=== PATIENT | female | born 1995 | race Caucasian/White ===

== ENCOUNTER 2019-10-29 11:39 | Inpatient (IN) | payer BC ==
[2019-11-02] MEDS ORDERED: LIDOCAINE 0.5% (PF) 5 MG/ML (50 ML SDV) SQ PRN (06:16)
[2019-11-02] MEDS ORDERED: TERBUTALINE 1 MG/ML VIAL SQ PRN (06:16)
[2019-11-02] MEDS ORDERED: CARBOPROST TROMETHAMINE 250 MCG/ML 1 ML AMP IM PRN (06:16)
[2019-11-02] MEDS ORDERED: METHYLERGONOVINE 0.2 MG/ML 1 ML AMP IM PRN (06:16)
[2019-11-02] MEDS ORDERED: OXYTOCIN 10 UNIT/ML 1 ML VIAL IM PRN (06:16)
[2019-11-02] MEDS ORDERED: PENICILLIN G POTASSIUM 5,000,000 UNIT in DEXTROSE 5% IN WATER 100 ML IVPB ONE ×2 (06:30)
[2019-11-02] MEDS: LACTATED RINGERS 1,000 ML IV SCH ×2 (06:32→12:12)
[2019-11-02] MEDS: OXYTOCIN 30 UNITS/500 ML NS 30 UNIT in SALINE 1 500ML.BAG IV SCH (06:49)
[2019-11-02 06:56] LABS: Basophils % (A) 0 %; Eosinophils # (A) 0.2 k/uL (0-0.7); Eosinophils % (A) 2 %; HCT 42.2 % (34.0-46.0); HGB 14.2 gm/dL (11.4-16.0); Lymphocytes # (A) 1.7 k/uL (1.0-4.8); Lymphocytes % (A) 19 %; MCH 30.9 pg (25.0-35.0); MCHC 33.6 g/dL (31.0-37.0); MCV 92.2 fL (80.0-100.0); Mean Platelet Volume 8.4; Monocytes # (A) 0.5 k/uL (0-1.0); Monocytes % (A) 5 %; Neutrophils # (A) 6.4 k/uL (1.3-7.7); Neutrophils % (A) 71 %; Platelet Count 275 k/uL (150-450); RBC 4.58 m/uL (3.80-5.40); RDW 12.8 % (11.5-15.5); WBC 9.1 k/uL (3.8-10.6)
--- NOTE | 2019-11-02 07:36 | P.HPOB ---
History of Present Illness H&P Date: 11/02/19 This is a 24-year-old white female 2 para 1001 EDC 10/29/2019 at 40-4/7 weeks' gestation. Patient presents today for induction for postdates with favorable multiparous cervix. Fetus is been active throughout the . She denies vaginal bleeding or fluid leakage. 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 History of asthma, vitamin D deficiency on oral replacement. Past surgical history is significant for tonsillectomy in the past. Current medications Ventolin inhaler 1 puff every 6 hours as needed, vitamin daily. ALLERGIES none known. Family history significant for heart disease, hypertension, breast cancer. Obstetric history significant for 41 week vaginal delivery 2013, unremarkable. Social history patient is a former tobacco smoker, father of the baby is present and involved. She denies alcohol or drug use with her . Obstetric history is significant for blood type B+, rubella status immune. VDRL testing, urine culture, hepatitis B surface antigen, HIV testing, gonorrhea and chlamydia cultures all negative. One-hour Glucola 123. Group B strep cultures positive. On exam this is a pleasant female who is 5 foot 1 inch, 187 pounds, blood pressure on admission 134/86. The general physical exam is within normal limits. Chest is clear in all whiting. Extremities reveal no edema. Cervix is 3 cm dilated, 60% effaced, -2 station, vertex, anterior, soft. Artificial amniorrhexis reveals meconium-stained fluid. heart rate is consistent with reactive NST, baseline 140s. Good overall variability. Impression: 40-4/7 weeks intrauterine , here for induction of labor with reasonably favorable cervix. Positive group B strep cultures. Meconium- stained fluid. Plan: Penicillin prophylaxis has been instituted. Oxytocin per hospital protocol. Close maternal and surveillance. Anticipate normal spontaneous vaginal delivery. Analgesic options have been reviewed with the patient. Review of Systems Constitutional: Reports as per HPI Past Medical History Past Medical History: Asthma History of Any Multi-Drug Resistant Organisms: None Reported Past Surgical History: Tonsillectomy Past Anesthesia/Blood Transfusion Reactions: No Reported Reaction Smoking Status: Never smoker Past Drug Use History: None Reported - Past Family History Mother Family Medical History: No Reported History Medications and Allergies Home Medications Medication Instructions Recorded Confirmed Type 78/Iron/Folate 1/Dha 1 tab PO ONCE 11/02/19 11/02/19 History [Prenate Dha Softgel] Allergies Allergy/AdvReac Type Severity Reaction Status Date / Time No Known Allergies Allergy Verified 11/02/19 06:16 Exam Vital Signs Temp Pulse Resp BP 11/02/19 07:05 97.1 F L 103 H 16 134/86 Intake and Output 11/01/19 11/02/19 11/02/19 22:59 06:59 14:59 Other: Weight 84.822 kg 84.822 kg See dictation under HPI please Results Result Diagrams: 11/02/19 06:40 Assessment and Plan Assessment: 40-4/7 weeks intrauterine , thin meconium-stained fluid. All signs otherwise reassuring, positive group B strep. Plan: Continue close maternal and surveillance. Penicillin G per hospital protocol. Oxytocin augmentation. Anticipate normal spontaneous vaginal delivery. Time with Patient: Less than 30
[2019-11-02] MEDS: PENICILLIN G POTASSIUM 2,500,000 UNIT in DEXTROSE 5% IN WATER 100 ML IVPB SCH ×4 (10:32→15:08)
[2019-11-02] MEDS ORDERED: ROPIVACAINE 100 MG, fentaNYL (PF) 200 MCG in SODIUM CHLORIDE 0.9% 76 ML EPIDURAL ONE (12:39)
[2019-11-02] MEDS ORDERED: HYDROCORTISONE 2.5% RECTAL CREAM 30 GM TUBE RECTAL PRN (16:33)
[2019-11-02] MEDS ORDERED: BENZOCAINE/MENTHOL SPRAY 1 GM/SPRAY AEROSOL TOPICAL PRN (16:33)
[2019-11-02] MEDS ORDERED: WITCH HAZEL 1 EACH MED..PAD TOPICAL PRN (16:33)
[2019-11-02] MEDS ORDERED: SIMETHICONE 80 MG CHEWABLE PO PRN (16:33)
[2019-11-02] MEDS ORDERED: ACETAMINOPHEN TAB 325 MG TAB PO PRN (16:33)
[2019-11-02] MEDS ORDERED: LANOLIN CREAM 5 GM TUBE TOPICAL PRN (16:33)
[2019-11-02] MEDS ORDERED: diphenhydrAMINE 50 MG/ML 1 ML VIAL IVP PRN ×2 (16:33)
[2019-11-02] MEDS ORDERED: diphenhydrAMINE 50 MG CAP PO PRN (16:33)
[2019-11-02] MEDS ORDERED: ZOLPIDEM 5 MG TAB PO PRN (16:33)
[2019-11-02] MEDS ORDERED: diphenhydrAMINE ELIXIR 25 MG/10 ML CUP PO PRN (16:33)
[2019-11-02] MEDS ORDERED: diphenhydrAMINE 25 MG CAP PO PRN (16:33)
--- NOTE | 2019-11-02 16:33 | P.PROBDLV ---
Vaginal Delivery Note - . Vaginal Delivery Note: This is a 24-year-old white female 2 para 1001 EDC 10/29/2019 at 40-4/7 weeks' gestation. Patient he presented for induction with favorable multiparous cervix, postdates . Blood type B positive. Rubella status immune. Group B strep cultures positive. Please see my dictated history and physical for details. Penicillin G prophylaxis was given, 3 doses were received. Oxytocin was started and titrated per hospital protocol. Artificial amniorrhexis revealed light meconium-stained fluid. Epidural was placed per her request. She became completely dilated at 07/25/2001 hours and began the second stage of labor at that time. With excellent maternal expulsive efforts the infant's head crowned occiput anterior. Perineal body was prepped and draped in usual sterile fashion. 's head delivered occiput anterior and restituted accordingly. The left or anterior shoulder was delivered easily from underneath the pubic symphysis. The oropharynx, nasopharynx, and external nares were all bulb suctioned on the perineal body. Patient was officially delivered of a liveborn male infant at 1614 hrs. Umbilical cord was doubly clamped and ligated, he was handed to waiting nurses for evaluation where scores of 8 and 9 at one and 5 minutes respectively were given. The placenta delivered spontaneously with active management, was inspected and noted to be intact with trivascular cord at 1617 hrs. Uterus is then massaged. Careful inspection of the cervix, vagina, perineum, periurethral, and perirectal areas revealed no lacerations and no defects. Bleeding was slightly brisk immediately upon delivery of placenta, therefore Methergine was given IM 1 with immediate results. Total estimated blood loss 300 mL's. All sponge needle and enhancement counts are correct at the end of the procedure. Patient is requesting circumcision for her son.
[2019-11-02] MEDS ORDERED: OXYTOCIN 20 UNITS/1000 ML NS 1,000 ML IV SCH (16:45)
[2019-11-02] MEDS: SENNOSIDES-DOCUSATE SODIUM 1 EACH TAB PO SCH (22:50)
--- NOTE | 2019-11-03 07:49 | P.DS ---
Providers Date of admission: 11/02/19 06:03 Expected date of discharge: 11/03/19 Attending physician: Saida Yeung Primary care physician: Stated None Hospital Course: This is a 24 rolled white female 2 per 1001 [facility] 10/29/2019 who presented at 40-4/7 weeks for induction for postdates . Blood type B positive, rubella status immune, group B strep cultures positive. otherwise unremarkable, please see admitting H&P for details. Artificial amniorrhexis revealed thin meconium-stained fluid. Oxytocin was started and titrated per hospital protocol. Penicillin G was given per protocol, 3 doses total. Patient went on to deliver a liveborn male with scores of 8 and 9 at one and 5 minutes respectively. Infant weighed 9 lbs. 1 oz. or 4100 g. Estimated blood loss 300 mL's. Placenta intact, meconium stained with trivascular cord. Please see my dictated delivery note for details. This morning the patient looks well. She is voiding, ambulating and passing flatus without difficulty. Vital signs are stable and she is afebrile. Fundus is firm and in the midline, symmetric and 18 week size. Extremities are negative for edema. Patient is breast-feeding without issue. Perineum is clean and dry, intact. Fundus is firm, midline, symmetric, 18 week size. Patient is judged to be in very good condition for discharge home, and circumcision has been performed. Patient will follow-up with me in the office in 6 weeks. She is reminded no intercourse, tampons or douching. She will use [id number] Advil or Aleve, or Motrin as needed for pain. I've asked her to call with any fevers shakes or chills, foul smelling or copious lochia, with the passage of large blood clots, with any pain not alleviated by [id number] products, or indeed with any concerns. Patient Condition at Discharge: Good Plan - Discharge Summary Discharge Rx Participant: No New Discharge Prescriptions: No Action 78/Iron/Folate 1/Dha [Prenate Dha Softgel] 1 tab PO ONCE Discharge Medication List 78/Iron/Folate 1/Dha [Prenate Dha Softgel] 1 tab PO ONCE 11/02/19 [His tory] Follow up Appointment(s)/Referral(s): Saida Yeung MD [STAFF PHYSICIAN] - 6 Weeks Discharge Disposition: HOME SELF-CARE
[2019-11-03] MEDS: SENNOSIDES-DOCUSATE SODIUM 1 EACH TAB PO SCH ×2 (08:38→22:28)
[2019-11-03] MEDS: IBUPROFEN 600 MG TAB PO PRN ×2 (11:38→21:40)
[2019-11-04] MEDS: OXYTOCIN 30 UNITS/500 ML NS 30 UNIT in SALINE 1 500ML.BAG IV SCH (04:36)
[2019-11-04] MEDS: LACTATED RINGERS 1,000 ML IV SCH (04:36)
[2019-11-04] MEDS: SENNOSIDES-DOCUSATE SODIUM 1 EACH TAB PO SCH (07:37)
[2019-11-04] MEDS: IBUPROFEN 600 MG TAB PO PRN (07:37)
[2019-11-04 16:12] VITALS: BP 159/72; PULSE 89; RESP 18; TEMP 97.8
== END 2019-11-04 18:00 | disposition home or self-care (01) | DRG 807 ==
LOC: 4FBP 11-02 06:03
PROVIDERS: ADMIT Obstetrics & Gynecology; ATTEND Obstetrics & Gynecology
PROC: 10E0XZZ Delivery of Products of Conception, External Approach (ICD-10-PCS; principal; 2019-11-02)
PROC: 00HU33Z Insertion of Infusion Device into Spinal Canal, Percutaneous Approach (ICD-10-PCS; principal; 2019-11-02)
PROC: 3E0R3BZ Introduction of Anesthetic Agent into Spinal Canal, Percutaneous Approach (ICD-10-PCS; principal; 2019-11-02)
DX: O48.0 Post-term pregnancy (principal); Z37.0 Single live birth; O99.52 Diseases of the respiratory system complicating childbirth; J45.909 Unspecified asthma, uncomplicated; O77.0 Labor and delivery complicated by meconium in amniotic fluid; Z3A.40 40 weeks gestation of pregnancy; Z80.3 Family history of malignant neoplasm of breast; Z82.49 Family history of ischemic heart disease and other diseases of the circulatory system; Z87.891 Personal history of nicotine dependence
CPT/HCPCS: 85025; 86850; 86900; 86901

== ENCOUNTER → 2022-07-29 | Outpatient (CLI) | payer OTHER ==
[2022-07-29 11:23] LABS: Basophils # (A) 0.01 X 10*3/uL (0.00-0.10); Basophils % (A) 0.2 %; Eosinophils # (A) 0.25 X 10*3/uL (0.04-0.35); Eosinophils % (A) 4.7 %; HCT 39.2 % (37.2-46.3); HGB 12.9 g/dL (12.0-15.0); Immature Grans, Automated 0 %; Lymphocytes # (A) 2.02 X 10*3/uL (0.90-5.00); Lymphocytes % (A) 37.9 %; MCH 30.2 pg (27.0-32.0); MCHC 32.9 g/dL (32.0-37.0); MCV 91.8 fL (80.0-97.0); Mean Platelet Volume 9.9 fL (9.5-12.2); Monocytes # (A) 0.46 X 10*3/uL (0.20-1.00); Monocytes % (A) 8.6 %; NRBC Per 100 WBC 0 /100 WBCS (0.0-0.0); Neutrophils # (A) 2.59 X 10*3/uL (1.80-7.70); Neutrophils % (A) 48.6 %; Platelet Count 331 X 10*3/uL (140-440); RBC 4.27 X 10*6/uL (4.10-5.20); RDW 12.9 % (11.5-14.5); WBC 5.33 X 10*3/uL (4.50-10.00)
== END | disposition home or self-care (01) ==
LOC: LABPAT 08:02
PROVIDERS: ATTEND Obstetrics & Gynecology
DX: Z30.2 Encounter for sterilization (principal)
CPT/HCPCS: 85025

== ENCOUNTER 2022-08-18 07:03 | Day surgery (SDC) | payer BC, OTHER ==
[2022-08-13 15:32] VITALS: BMI 33.0
--- NOTE | 2022-08-15 01:30 | HP ---
HISTORY AND PHYSICAL Admit H&P for surgery on 08/18. HISTORY OF PRESENT ILLNESS: This is a 27-year-old female, 2, para 2-0-0-2 who is requesting bilateral tubal sterilization. She has no issues with dysmenorrhea. She is currently using oral contraception, but is dissatisfied and requesting tubal ligation for a more efficacious coverage. PAST MEDICAL HISTORY: Significant for asthma, perineal condylomata, and vitamin D deficiency. PAST SURGICAL HISTORY: Tonsillectomy in the past. CURRENT MEDICATIONS: Columba control pill daily. ALLERGIES: None known. FAMILY HISTORY: Significant for hypertension, breast cancer, and heart disease. REPRODUCTIVE HISTORY: Normal spontaneous vaginal deliveries x2, unremarkable, healthy male infants. SOCIAL HISTORY: The patient is a former social tobacco smoker. 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 She denies alcohol or drug use. PHYSICAL EXAMINATION: VITAL SIGNS: The patient is 5 feet 1 inch, 174 pounds, blood pressure 140/80. GENERAL: Within normal limits. HEENT: Negative, good dentition, no thyromegaly. BREASTS: Non-engorged, symmetric, no nipple discharge, axillary adenopathy, discernible lesions or masses or skin changes. ABDOMEN: Soft, nontender, no organosplenomegaly. No CVA tenderness. CARDIAC: Reveals regular rate and rhythm with no murmur, click, or rub. CHEST: Clear to auscultation in all whiting anteriorly and posteriorly. EXTREMITIES: Reveal no edema, good peripheral pulses, good range of motion. PELVIS: The cervix is multiparous, the uterus is anteverted, anteflexed, smooth, small, and mobile. Adnexa are negative bilaterally. Rectal exam reveals good sphincter tone without defects. IMPRESSION: Multiparity, currently on control pill, requesting permanent tubal sterilization. PLAN: We will proceed with laparoscopic bilateral tubal ligation utilizing Filshie clips. The risks, benefits, alternatives have all been discussed in detail. We have reviewed the risks of perforation or damage to the bowel, bladder, ureters, blood vessels. The risks of bleeding, infection, clip migration, and the failure rate. All questions have been answered. Risks of anesthesia, aspiration, nerve damage, even possible have all been discussed. Pamphlet on understanding the procedure has been given and reviewed. All questions answered. This is for surgery next week on . MMODL / IJN: [id number] /
[~2022-08-18 07:03] MED LIST: Pre Op ABX Message 1 EACH MISC MISCELLANE ONE
[2022-08-18] MEDS ORDERED: MIDAZOLAM 2 MG/2 ML VIAL IV PRN (07:10)
[2022-08-18] MEDS ORDERED: DEXAMETHASONE SOD PHOSPHATE 4 MG/ML 1 ML VIAL IV ONE (07:10)
[2022-08-18] MEDS ORDERED: LACTATED RINGERS 1,000 ML IV SCH (07:10)
[2022-08-18] MEDS ORDERED: LIDOCAINE 1% (10MG/ML) FOR IV START INTRADERMA PRN (07:10)
[2022-08-18] MEDS ORDERED: ONDANSETRON 4 MG/2 ML VIAL IVP ONE ×2 (07:10→10:55)
[2022-08-18] MEDS ORDERED: SCOPOLAMINE 1 MG/72 HR PATCH TRANSDERM ONE (07:55)
[2022-08-18] MEDS ORDERED: PROPOFOL 10 MG/ML 20 ML VIAL IV ONE (08:09)
[2022-08-18] MEDS ORDERED: GLYCOPYRROLATE 0.2 MG/ML 2 ML VIAL ONE (08:09)
[2022-08-18] MEDS ORDERED: ROCURONIUM 10 MG/ML (5 ML VIAL) IV ONE (08:09)
[2022-08-18] MEDS ORDERED: MIDAZOLAM 2 MG/2 ML VIAL ONE (08:09)
[2022-08-18] MEDS ORDERED: SUCCINYLCHOLINE CHLORIDE 200 MG/10 ML VIAL IV ONE (08:09)
[2022-08-18] MEDS ORDERED: LIDOCAINE 2% INJ 20 MG/ML (2 ML VIAL) ONE (08:09)
[2022-08-18] MEDS ORDERED: NEOSTIGMINE 1 MG/ML 10 ML VIAL ONE (08:09)
[2022-08-18] MEDS ORDERED: fentaNYL (PF) 50 MCG/ML 2 ML AMP ONE (08:09)
[2022-08-18] MEDS ORDERED: KETOROLAC 15 MG/ML 1 ML VIAL ONE (08:09)
[2022-08-18] MEDS ORDERED: LIDOCAINE 4% LTA KIT (4 ML) TOPICAL ONE (08:09)
[2022-08-18] MEDS ORDERED: BUPIVACAINE (PF) 0.25% 30 ML VIAL SQ ONE ×3 (08:38→08:45)
[2022-08-18] MEDS: HYDROmorphone 0.5 MG/0.5 ML SYRINGE IVP PRN ×3 (08:56→09:13)
--- NOTE | 2022-08-18 08:59 | P.OP ---
Date of Procedure: 08/18/22 Preoperative Diagnosis: Undesired fertility Postoperative Diagnosis: Same, normal-appearing female pelvis Procedure(s) Performed: Laparoscopic tubal ligation with Filshie clips Anesthesia: RODRÍGUEZ Surgeon: Saida Yeung Estimated Blood Loss (ml): 20 IV fluids (ml): 600 Urine output (ml): 100 Pathology: none sent Condition: stable Disposition: PACU Operative Findings: Normal-appearing female pelvis, no evidence of endometriosis or adhesions. Description of Procedure: Patient is brought to the operating suite where a general anesthetic is administered without difficulty. She's placed in the dorsal lithotomy position. The cervix, vagina, perineal body and abdomen are all prepped and draped in the usual sterile fashion. The appropriate timeout is performed to assure proper patient and procedural identification. Gentle examination under anesthesia reveals a small anteverted uterus, negative adnexa bilaterally. Urine hCG is negative. Antibiotics are not deemed necessary. Bladder is drained for approximately 20 mL of clear yellow urine. Speculum is placed into the vagina and the anterior lip is grasped with a tenaculum, acorn cannula placed on the external cervical os and attached to the tenaculum, speculum is then removed. Attention is now drawn to the abdominal wall. A small infraumbilical incision is made with a scalpel and the varies needle is placed and checked with hanging drop technique. The abdomen is insufflated under low filling pressures of approximately 6-8 mmHg for a total of 4.0 L of CO2 gas. Veress needle was removed. The trocar is then placed and placement is noted to be atraumatic. A second incision is made suprapubically and under direct visualization a second trocar is placed. Patient is now placed in slight Trendelenburg position and the uterus is brought into the surgical field from below and swept to the side. The right fallopian tube is visualized in its entirety to the fimbriated end, and a Filshie clip is placed in the isthmic portion of the tube with care to traverse the entire diameter of the tube into the mesal salpinx. Appropriate blanching is visualized. The same procedure is carried out contralaterally on the left fallopian tube, clip being placed in the isthmic portion through the diameter of the tube into the mesal salpinx. Blanching is noted. Bilateral ovaries appeared normal. The anterior and posterior cul-de-sacs, katy ateral pelvic sidewalls, liver edge and gallbladder all within normal limits to inspection. The CO2 gas was allowed to diffuse. The trochars are removed under direct visualization and the fascial defects are noted to be hemostatically intact. 4.0 undyed Monocryl is used in a subcuticular manner to close the incisions. They are injected with a total of 10 mL of cord percent Marcaine without epinephrine to aid in analgesia. Toradol is given. The incisions are dressed appropriately. Instrumentation is removed from the cervix which is clean and dry. All sponge needle and enhancement counts are correct. Patient is brought back to the recovery room with stable vital signs including a blood pressure 123/80, 100% O2 saturation, pulse 83. Patient will follow-up with me in the office in 2 weeks. Written instructions are provided.
[2022-08-18 09:03] VITALS: RESP 16; TEMP 97.8
[2022-08-18 10:21] VITALS: BP 110/60; PULSE 71
[2022-08-18] MEDS ORDERED: ONDANSETRON 4 MG/2 ML VIAL ONE (10:58)
== END 2022-08-18 11:12 ==
LOC: OR 07:03
PROVIDERS: ATTEND Obstetrics & Gynecology
DX: Z30.2 Encounter for sterilization (principal); J45.909 Unspecified asthma, uncomplicated; Z80.3 Family history of malignant neoplasm of breast; Z82.49 Family history of ischemic heart disease and other diseases of the circulatory system; Z87.891 Personal history of nicotine dependence; Z64.1 Problems related to multiparity
CPT/HCPCS: 81025; 58671; J2250; J0330; J1100; J2710; J2405; J3010; J1885; J2704; J1170; J2001